=== PATIENT | male | born 1960 | race Caucasian/White ===

== ENCOUNTER → 2016-11-14 | Outpatient (CLI) | payer OTHER ==
[2016-11-14 17:44] LABS: ANION GAP 3 MEQ/L (8-16); BLOOD UREA NITROGEN 17 MG/DL (7-18); CALCIUM LEVEL 8.8 MG/DL (8.5-10.1); CARBON DIOXIDE LEVEL 32 MEQ/L (21-32); CHLORIDE LEVEL 106 MEQ/L (98-107); CREATININE FOR GFR 1.14 MG/DL (0.70-1.30); GLOMERULAR FILTRATION RATE > 60.0 (>56); GLUCOSE, FASTING 103 MG/DL (70-105); POTASSIUM SERUM 4.8 MEQ/L (3.5-5.1); SODIUM LEVEL 141 MEQ/L (136-145)
[2016-11-14 18:31] LABS: MEAN CORPUSCULAR HEMOGLOBIN 31.7 pg (27.0-33.0); MEAN CORPUSCULAR HGB CONC 33.7 g/dl (32.0-36.5); RED CELL DISTRIBUTION WIDTH 13.4 % (11.5-14.5); WHITE BLOOD COUNT 7.1 K/mm3 (4.0-10.0)
== END | disposition home or self-care (01) ==
LOC: M LRY 11:26
PROVIDERS: ATTEND Internal Medicine Cardiovascular Disease
DX: I48.91 Unspecified atrial fibrillation (principal)

== ENCOUNTER → 2017-03-16 | Outpatient (CLI) | payer OTHER | LOC: M SLEEP 19:52 | PROVIDERS: ATTEND Nurse Practitioner Adult Health | DX: G47.33 Obstructive sleep apnea (adult) (pediatric) (principal) ==

== ENCOUNTER → 2017-07-27 | Outpatient (CLI) | payer OTHER ==
--- NOTE | 2017-07-27 17:41 | REP ---
Right shoulder series: Three views. History: Pain in the right shoulder. Findings: The right glenohumeral and acromioclavicular joints are normally aligned. Periarticular soft tissues are unremarkable. There is minimal hypertrophy at the AC joint. Impression: Minimal AC joint hypertrophy. Otherwise negative right shoulder views. Signed by Geo Guallpa MD 07/28/2017 08:02 A
== END ==
LOC: M LRY 16:40
PROVIDERS: ATTEND Family Medicine
DX: M25.511 Pain in right shoulder (principal); G89.29 Other chronic pain
CPT/HCPCS: 73030; G0463

== ENCOUNTER → 2017-10-11 | Outpatient (REF) | payer OTHER ==
[2017-10-12 11:54] LABS: MEAN CORPUSCULAR HEMOGLOBIN 34.6 pg (27.0-33.0); MEAN CORPUSCULAR VOLUME 96.2 fl (80.0-96.0); WHITE BLOOD COUNT 8.2 10^3/uL (4.0-10.0)
[2017-10-12 12:11] LABS: ALBUMIN 3.8 GM/DL (3.2-5.2); ALBUMIN/GLOBULIN RATIO 0.97 (1.00-1.93); ALKALINE PHOSPHATASE 89 U/L (45-117); ALT/SGPT 27 U/L (12-78); ANION GAP 6 MEQ/L (8-16); AST/SGOT 22 U/L (7-37); BILIRUBIN,TOTAL 0.3 MG/DL (0.2-1.0); BLOOD UREA NITROGEN 16 MG/DL (7-18); CALCIUM LEVEL 8.5 MG/DL (8.5-10.1); CARBON DIOXIDE LEVEL 33 MEQ/L (21-32); CHLORIDE LEVEL 104 MEQ/L (98-107); CHOLESTEROL LEVEL 160 MG/DL (<200); CREATININE FOR GFR 0.95 MG/DL (0.70-1.30); GLOMERULAR FILTRATION RATE > 60.0 (>56); GLUCOSE, FASTING 89 MG/DL (70-105); POTASSIUM SERUM 4.2 MEQ/L (3.5-5.1); SODIUM LEVEL 143 MEQ/L (136-145); TOTAL PROTEIN 7.7 GM/DL (6.4-8.2); TRIGLYCERIDES LEVEL 120 MG/DL (<150)
[2017-10-12 12:28] LABS: PLT CLUMPS? POS FLAG; POS COUNT POS FLAG
[2017-10-12 12:29] LABS: PLATELET COUNT, AUTOMATED 116 10^3/uL (150-450)
== END ==
LOC: M SFHCLERA 16:14
PROVIDERS: ATTEND Family Medicine
DX: E66.01 Morbid (severe) obesity due to excess calories (principal)

== ENCOUNTER → 2017-10-24 | Outpatient (REF) | payer OTHER | LOC: M SFHCLERA 13:15 | DX: D69.6 Thrombocytopenia, unspecified (principal); Z53.9 Procedure and treatment not carried out, unspecified reason ==

== ENCOUNTER → 2017-10-25 | Outpatient (REF) | payer OTHER ==
[2017-10-25 11:50] LABS: HEMATOCRIT 42.9 % (42.0-52.0); HEMOGLOBIN 15.4 g/dl (14.0-18.0); MEAN CORPUSCULAR HEMOGLOBIN 33.8 pg (27.0-33.0); MEAN CORPUSCULAR HGB CONC 35.9 g/dl (32.0-36.5); MEAN CORPUSCULAR VOLUME 94.3 fl (80.0-96.0); PLATELET COUNT, AUTOMATED 106 10^3/uL (150-450); RED BLOOD COUNT 4.55 10^6/uL (4.30-6.10); RED CELL DISTRIBUTION WIDTH 14.6 % (11.5-14.5); WHITE BLOOD COUNT 7.1 10^3/uL (4.0-10.0)
[2017-10-25 12:50] LABS: PLT CLUMPS? POS FLAG; POS COUNT POS FLAG
== END ==
LOC: M SFHCLERA 08:11
DX: D69.6 Thrombocytopenia, unspecified (principal)

== ENCOUNTER → 2017-11-02 | Outpatient (REF) | payer OTHER ==
[2017-11-02 20:55] LABS: HEMATOCRIT 45.1 % (42.0-52.0); HEMOGLOBIN 15.3 g/dl (14.0-18.0); MEAN CORPUSCULAR HEMOGLOBIN 31.8 pg (27.0-33.0); MEAN CORPUSCULAR HGB CONC 33.9 g/dl (32.0-36.5); MEAN CORPUSCULAR VOLUME 93.8 fl (80.0-96.0); PLATELET COUNT, AUTOMATED 134 10^3/uL (150-450); RED BLOOD COUNT 4.81 10^6/uL (4.30-6.10); RED CELL DISTRIBUTION WIDTH 13.9 % (11.5-14.5); WHITE BLOOD COUNT 8.6 10^3/uL (4.0-10.0)
[2017-11-02 21:17] LABS: MALB URINE SIEMENS 8.9 MG/L; MAU/CREAT RATIO 4.6 MCG/MG (0.0-30.0)
[2017-11-02 21:19] LABS: ALBUMIN 3.8 GM/DL (3.2-5.2); ALBUMIN/GLOBULIN RATIO 0.95 (1.00-1.93); ALKALINE PHOSPHATASE 101 U/L (45-117); ALT/SGPT 27 U/L (12-78); ANION GAP 6 MEQ/L (8-16); AST/SGOT 21 U/L (7-37); BILIRUBIN,TOTAL 0.3 MG/DL (0.2-1.0); BLOOD UREA NITROGEN 20 MG/DL (7-18); CALCIUM LEVEL 8.7 MG/DL (8.5-10.1); CARBON DIOXIDE LEVEL 31 MEQ/L (21-32); CHLORIDE LEVEL 104 MEQ/L (98-107); CHOLESTEROL LEVEL 155 MG/DL (<200); CREATININE FOR GFR 1.02 MG/DL (0.70-1.30); GLOMERULAR FILTRATION RATE > 60.0 (>56); GLUCOSE, FASTING 78 MG/DL (70-105); HDL CHOLESTEROL 41 MG/DL (>40); NON-HDL-C 114 MG/DL; POTASSIUM SERUM 3.9 MEQ/L (3.5-5.1); SODIUM LEVEL 141 MEQ/L (136-145); TOTAL PROTEIN 7.8 GM/DL (6.4-8.2); TRIGLYCERIDES LEVEL 195 MG/DL (<150)
[2017-11-02 21:40] LABS: ESTIMATED AVERAGE GLUCOSE 128 MG/DL (60-110); HEMOGLOBIN A1c 6.1 %
== END ==
LOC: M SFHCLERA 16:10
DX: D69.6 Thrombocytopenia, unspecified (principal); E66.01 Morbid (severe) obesity due to excess calories

== ENCOUNTER 2017-12-30 07:43 | Emergency (ER) | payer OTHER ==
[2017-12-30 08:28] LABS: BASO # 0.1 10^3/uL (0.0-0.2); BASO % 0.6 % (0.0-1.0); EOS # 0.3 10^3/uL (0.0-0.50); HEMATOCRIT 48.1 % (42.0-52.0); HEMOGLOBIN 16.8 g/dl (14.0-18.0); IMMATURE GRANULOCYTE % 0.3 % (0-3.0); LYMPH # 2.2 10^3/uL (1.5-4.5); LYMPH % 25.2 % (24.0-44.0); MEAN CORPUSCULAR HGB CONC 34.9 g/dl (32.0-36.5); MEAN CORPUSCULAR VOLUME 94.5 fl (80.0-96.0); MONO # 0.8 10^3/uL (0.0-0.8); MONO % 9.2 % (0.0-5.0); NEUTROPHILS # 5.3 10^3/uL (1.8-7.7); NEUTROPHILS % 61.7 % (36.0-66.0); PLATELET COUNT, AUTOMATED 164 10^3/uL (150-450); RED BLOOD COUNT 5.09 10^6/uL (4.30-6.10); RED CELL DISTRIBUTION WIDTH 14.6 % (11.5-14.5); WHITE BLOOD COUNT 8.6 10^3/uL (4.0-10.0)
[2017-12-30] MEDS ORDERED: METOPROLOL 5 MG/5 ML VIAL As Ordered (08:30)
[2017-12-30] MEDS: METOPROLOL 5 MG/5 ML VIAL IV ×3 (08:36→08:52)
[2017-12-30 08:38] LABS: ANION GAP 5 MEQ/L (8-16); BLOOD UREA NITROGEN 14 MG/DL (7-18); CALCIUM LEVEL 8.3 MG/DL (8.5-10.1); CARBON DIOXIDE LEVEL 29 MEQ/L (21-32); CHLORIDE LEVEL 108 MEQ/L (98-107); CPK CREATINE PHOSPHOKINASE 115 U/L (39-308); CREATININE FOR GFR 1.14 MG/DL (0.70-1.30); FREE T4 1.14 NG/DL (0.76-1.46); GLOMERULAR FILTRATION RATE > 60.0 (>56); GLUCOSE, FASTING 119 MG/DL (70-100); POTASSIUM SERUM 4.1 MEQ/L (3.5-5.1); SODIUM LEVEL 142 MEQ/L (136-145); TROPONIN I < 0.02 NG/ML (< 0.10)
[2017-12-30 08:39] LABS: INR 1.51; PROTHROMBIN TIME 18.6 SECONDS (12.4-14.5)
[2017-12-30 08:40] LABS: PARTIAL THROMBOPLASTIN TIME 42.5 SECONDS (26.8-37.9)
[2017-12-30 08:44] LABS: CK-MB VALUE MASS 1.1 NG/ML (0.0-3.6); MB/CK RELATIVE INDEX 0.95 (< OR =4)
[2017-12-30] MEDS: SOTALOL HCL 80 MG TAB PO (09:34)
== END 2017-12-30 09:59 | disposition home or self-care (01) ==
LOC: M ED 07:43
DX: I48.91 Unspecified atrial fibrillation (principal); I10 Essential (primary) hypertension; E78.5 Hyperlipidemia, unspecified; Z79.899 Other long term (current) drug therapy
CPT/HCPCS: 71045

== ENCOUNTER 2018-01-11 04:03 | Emergency (ER) | payer OTHER ==
[2018-01-11] MEDS: ADENOSINE 6MG/2ML INJECTION (J0153) IV ×3 (04:28→04:45)
[2018-01-11 04:40] LABS: BASO % 0.3 % (0.0-1.0); EOS # 0.2 10^3/uL (0.0-0.50); EOS % 1.4 % (0.0-3.0); HEMATOCRIT 47.5 % (42.0-52.0); HEMOGLOBIN 15.8 g/dl (14.0-18.0); IMMATURE GRANULOCYTE % 0.3 % (0-3.0); LYMPH # 2.1 10^3/uL (1.5-4.5); LYMPH % 16.7 % (24.0-44.0); MEAN CORPUSCULAR HEMOGLOBIN 31.5 pg (27.0-33.0); MEAN CORPUSCULAR HGB CONC 33.3 g/dl (32.0-36.5); MEAN CORPUSCULAR VOLUME 94.6 fl (80.0-96.0); MONO # 0.9 10^3/uL (0.0-0.8); MONO % 6.9 % (0.0-5.0); NEUTROPHILS # 9.6 10^3/uL (1.8-7.7); NEUTROPHILS % 74.4 % (36.0-66.0); PLATELET COUNT, AUTOMATED 157 10^3/uL (150-450); RED BLOOD COUNT 5.02 10^6/uL (4.30-6.10); RED CELL DISTRIBUTION WIDTH 13.9 % (11.5-14.5); WHITE BLOOD COUNT 12.9 10^3/uL (4.0-10.0)
[2018-01-11 04:59] LABS: INR 1.96; PROTHROMBIN TIME 22.9 SECONDS (12.4-14.5)
[2018-01-11 05:00] LABS: PARTIAL THROMBOPLASTIN TIME 46.8 SECONDS (26.8-37.9)
[2018-01-11 05:03] LABS: MAGNESIUM LEVEL 2.2 MG/DL (1.8-2.4)
[2018-01-11 05:03] LABS: PHOSPHORUS LEVEL 3.7 MG/DL (2.5-4.9)
[2018-01-11] MEDS: ETOMIDATE INJ 20MG/10ML VIAL IV (05:05)
[2018-01-11 05:06] LABS: ALBUMIN 3.5 GM/DL (3.2-5.2); ALBUMIN/GLOBULIN RATIO 0.95 (1.00-1.93); ALKALINE PHOSPHATASE 90 U/L (45-117); ALT/SGPT 25 U/L (12-78); ANION GAP 6 MEQ/L (8-16); AST/SGOT 20 U/L (7-37); BILIRUBIN,DIRECT 0.2 MG/DL (0.0-0.2); BILIRUBIN,TOTAL 0.5 MG/DL (0.2-1.0); BLOOD UREA NITROGEN 22 MG/DL (7-18); CALCIUM LEVEL 8.6 MG/DL (8.5-10.1); CARBON DIOXIDE LEVEL 29 MEQ/L (21-32); CHLORIDE LEVEL 105 MEQ/L (98-107); CPK CREATINE PHOSPHOKINASE 106 U/L (39-308); CREATININE FOR GFR 1.26 MG/DL (0.70-1.30); FREE T4 1.05 NG/DL (0.76-1.46); GLOMERULAR FILTRATION RATE > 60.0 (>56); GLUCOSE, FASTING 145 MG/DL (70-100); LIPASE 174 U/L (73-393); POTASSIUM SERUM 4.4 MEQ/L (3.5-5.1); SODIUM LEVEL 140 MEQ/L (136-145); TOTAL PROTEIN 7.2 GM/DL (6.4-8.2)
[2018-01-11 05:12] LABS: CK-MB VALUE MASS 1.9 NG/ML (<3.6); MB/CK RELATIVE INDEX 1.79 (< OR =4)
== END 2018-01-11 06:22 | disposition short-term general hospital (02) ==
LOC: M ED 04:03
DX: R07.9 Chest pain, unspecified (principal); I47.1 Supraventricular tachycardia; R06.02 Shortness of breath; I48.91 Unspecified atrial fibrillation; G47.30 Sleep apnea, unspecified; Z79.899 Other long term (current) drug therapy; Z79.01 Long term (current) use of anticoagulants; Z87.891 Personal history of nicotine dependence
CPT/HCPCS: J0153

== ENCOUNTER 2018-03-15 21:54 | Emergency (ER) | payer OTHER ==
[2018-03-15] MEDS: METOPROLOL 5 MG/5 ML VIAL IV ×3 (22:24→22:58)
[2018-03-15 22:25] LABS: BASO % 0.4 % (0.0-1.0); EOS # 0.4 10^3/uL (0.0-0.50); EOS % 4.1 % (0.0-3.0); HEMATOCRIT 43.9 % (42.0-52.0); HEMOGLOBIN 15.4 g/dl (13.5-17.5); IMMATURE GRANULOCYTE % 0.3 % (0-3.0); LYMPH # 2.5 10^3/uL (1.5-4.5); LYMPH % 27.7 % (24.0-44.0); MEAN CORPUSCULAR HEMOGLOBIN 33.2 pg (27.0-33.0); MEAN CORPUSCULAR HGB CONC 35.1 g/dl (32.0-36.5); MEAN CORPUSCULAR VOLUME 94.6 fl (80.0-96.0); MONO # 0.8 10^3/uL (0.0-0.8); MONO % 8.5 % (0.0-5.0); NEUTROPHILS # 5.4 10^3/uL (1.8-7.7); PLATELET COUNT, AUTOMATED 143 10^3/uL (150-450); RED BLOOD COUNT 4.64 10^6/uL (4.30-6.10); RED CELL DISTRIBUTION WIDTH 14.6 % (11.5-14.5); WHITE BLOOD COUNT 9.1 10^3/uL (4.0-10.0)
[2018-03-15 22:38] LABS: INR 1.16
[2018-03-15 22:39] LABS: PARTIAL THROMBOPLASTIN TIME 36.7 SECONDS (26.8-37.9)
[2018-03-15 22:47] LABS: ANION GAP 6 MEQ/L (8-16); BLOOD UREA NITROGEN 17 MG/DL (7-18); CALCIUM LEVEL 8.6 MG/DL (8.5-10.1); CARBON DIOXIDE LEVEL 29 MEQ/L (21-32); CHLORIDE LEVEL 107 MEQ/L (98-107); CK-MB VALUE MASS 1.7 NG/ML (<3.6); CPK CREATINE PHOSPHOKINASE 163 U/L (39-308); CREATININE FOR GFR 1.17 MG/DL (0.70-1.30); GLOMERULAR FILTRATION RATE > 60.0 (>56); GLUCOSE, FASTING 159 MG/DL (70-100); MB/CK RELATIVE INDEX 1.04 (< OR =4); POTASSIUM SERUM 3.9 MEQ/L (3.5-5.1); SODIUM LEVEL 142 MEQ/L (136-145); TROPONIN I < 0.02 NG/ML (< 0.10)
[2018-03-15] MEDS: DIGOXIN INJ 0.5 MG/2 ML AMP (J1160) IV (22:59)
[2018-03-15] MEDS: AMIODARONE HCL 150 MG in APPROPRIATE DILUENT 1 EA IV (23:31)
[2018-03-15] MEDS ORDERED: MIDAZOLAM INJ 5 MG/ML VIAL (J2250) As Ordered (23:39)
[2018-03-16] MEDS: MIDAZOLAM INJ 2 MG/2 ML VIAL (J2250) IV (00:10)
[2018-03-16] MEDS: NS 500 ML IV (00:25)
== END 2018-03-16 01:54 | disposition left against medical advice (07) ==
LOC: M ED 03-16 01:54
DX: I47.1 Supraventricular tachycardia (principal); I48.91 Unspecified atrial fibrillation; Z79.899 Other long term (current) drug therapy
CPT/HCPCS: J1160

== ENCOUNTER → 2018-08-02 | Outpatient (REF) | payer OTHER ==
[2018-08-02 18:42] LABS: ESTIMATED AVERAGE GLUCOSE 123 MG/DL (60-110); HEMOGLOBIN A1c 5.9 %
[2018-08-02 19:29] LABS: PSA SCREENING 2.15 NG/ML (< 4.0)
[2018-08-03 12:28] LABS: HEPATITIS C VIRUS ABY INDEX < 0.0 INDEX (<0.8)
== END ==
LOC: M SFHCLERA 13:52
DX: Z12.5 Encounter for screening for malignant neoplasm of prostate (principal); R73.02 Impaired glucose tolerance (oral); Z11.59 Encounter for screening for other viral diseases
CPT/HCPCS: 83036

== ENCOUNTER 2018-09-25 02:32 | Emergency (ER) | payer OTHER ==
[2018-09-25 03:00] LABS: BASO # 0.1 10^3/uL (0.0-0.2); BASO % 0.4 % (0.0-1.0); EOS # 0.3 10^3/uL (0.0-0.50); EOS % 2.9 % (0.0-3.0); HEMATOCRIT 46.1 % (42.0-52.0); IMMATURE GRANULOCYTE % 0.4 % (0-3.0); LYMPH # 2.6 10^3/uL (1.5-4.5); LYMPH % 23.2 % (24.0-44.0); MEAN CORPUSCULAR HEMOGLOBIN 33.2 pg (27.0-33.0); MEAN CORPUSCULAR HGB CONC 34.7 g/dl (32.0-36.5); MEAN CORPUSCULAR VOLUME 95.6 fl (80.0-96.0); MONO # 1.1 10^3/uL (0.0-0.8); MONO % 9.3 % (0.0-5.0); NEUTROPHILS # 7.2 10^3/uL (1.8-7.7); NEUTROPHILS % 63.8 % (36.0-66.0); PLATELET COUNT, AUTOMATED 166 10^3/uL (150-450); RED BLOOD COUNT 4.82 10^6/uL (4.30-6.10); RED CELL DISTRIBUTION WIDTH 14.6 % (11.5-14.5); WHITE BLOOD COUNT 11.4 10^3/uL (4.0-10.0)
[2018-09-25] MEDS: ADENOSINE 6MG/2ML INJECTION (J0153) IV ×3 (03:09→03:21)
[2018-09-25 03:34] LABS: ALBUMIN 3.9 GM/DL (3.2-5.2); ALBUMIN/GLOBULIN RATIO 1.05 (1.00-1.93); ALKALINE PHOSPHATASE 117 U/L (45-117); ALT/SGPT 44 U/L (12-78); ANION GAP 9 MEQ/L (8-16); AST/SGOT 38 U/L (7-37); BILIRUBIN,DIRECT < 0.1 MG/DL (0.0-0.2); BILIRUBIN,TOTAL 0.3 MG/DL (0.2-1.0); BLOOD UREA NITROGEN 21 MG/DL (7-18); CALCIUM LEVEL 8.5 MG/DL (8.8-10.2); CARBON DIOXIDE LEVEL 26 MEQ/L (21-32); CHLORIDE LEVEL 104 MEQ/L (98-107); CPK CREATINE PHOSPHOKINASE 150 U/L (39-308); CREATININE FOR GFR 1.49 MG/DL (0.70-1.30); GLOMERULAR FILTRATION RATE 51.2 (>49); GLUCOSE, FASTING 194 MG/DL (70-100); LIPASE 151 U/L (73-393); POTASSIUM SERUM 4.3 MEQ/L (3.5-5.1); SODIUM LEVEL 139 MEQ/L (136-145); TOTAL PROTEIN 7.6 GM/DL (6.4-8.2); TROPONIN I < 0.02 NG/ML (< 0.10)
[2018-09-25 03:35] LABS: INR 1.53; PROTHROMBIN TIME 18.7 SECONDS (12.1-14.4)
[2018-09-25 03:36] LABS: PARTIAL THROMBOPLASTIN TIME 40.1 SECONDS (25.4-37.6)
[2018-09-25] MEDS ORDERED: NS 1,000 ML IV (03:51)
[2018-09-25] MEDS: ETOMIDATE INJ 20MG/10ML VIAL IV (03:58)
[2018-09-25] MEDS: NS 1,000 ML IV (03:58)
[2018-09-25 09:49] LABS: CPK CREATINE PHOSPHOKINASE 150 U/L (39-308); MB/CK RELATIVE INDEX 0.87 (< OR =4); TROPONIN I 0.02 NG/ML (< 0.10)
== END 2018-09-25 10:19 | disposition home or self-care (01) ==
LOC: M ED 02:32
DX: I47.1 Supraventricular tachycardia (principal); Z95.0 Presence of cardiac pacemaker; R94.31 Abnormal electrocardiogram [ECG] [EKG]; Z79.02 Long term (current) use of antithrombotics/antiplatelets; Z79.899 Other long term (current) drug therapy
CPT/HCPCS: J0153

== ENCOUNTER → 2018-11-27 | Outpatient (CLI) | payer OTHER ==
[~2018-11-27] MED LIST: BUME2TAB3 PO; CARD240C5 PO; MAGN400T PO; METO200T28 PO; POTA99TA PO; SOTA160T PO; SOTA80TA2 PO; VITA125C2 PO; XARE20TA PO
[2018-11-27 11:54] LABS: HEMATOCRIT 43.3 % (42.0-52.0); HEMOGLOBIN 14.9 g/dl (13.5-17.5); MEAN CORPUSCULAR HEMOGLOBIN 32.9 pg (27.0-33.0); MEAN CORPUSCULAR HGB CONC 34.4 g/dl (32.0-36.5); MEAN CORPUSCULAR VOLUME 95.6 fl (80.0-96.0); PLATELET COUNT, AUTOMATED 126 10^3/uL (150-450); RED BLOOD COUNT 4.53 10^6/uL (4.30-6.10); WHITE BLOOD COUNT 6.5 10^3/uL (4.0-10.0)
[2018-11-27 12:15] LABS: BLOOD UREA NITROGEN 16 MG/DL (7-18); CALCIUM LEVEL 8.5 MG/DL (8.8-10.2); CARBON DIOXIDE LEVEL 26 MEQ/L (21-32); CHLORIDE LEVEL 107 MEQ/L (98-107); CREATININE FOR GFR 1.04 MG/DL (0.70-1.30); GLOMERULAR FILTRATION RATE > 60.0 (>49); GLUCOSE, FASTING 104 MG/DL (70-100); POTASSIUM SERUM 4.2 MEQ/L (3.5-5.1); SODIUM LEVEL 141 MEQ/L (136-145)
== END ==
LOC: M LRY 09:08
PROVIDERS: ATTEND Internal Medicine Cardiovascular Disease
DX: I48.0 Paroxysmal atrial fibrillation (principal)